=== PATIENT | female | born 1975 ===

== ENCOUNTER 2018-01-07 17:10 | Emergency (ER) | payer OTHER ==
[2018-01-07 17:45] VITALS: BP 108/65
--- NOTE | 2018-01-07 18:32 | UC ---
Respiratory Complaint HPI - HPI Summary HPI Summary: 42 year old female presents with 2 week history of occasionally productive cough for yellow sputum. Associated with nasal congestion, post-nasal drip, mild sore throat. States had subjective fever at onset of symptoms but none recently. Denies ear pain, dysphagia, chest pain, shortness of breath, wheezing , abdominal pain, nausea, or vomiting. 1 PPD smoker. - History of Current Complaint Chief Complaint: UCRespiratory Stated Complaint: COUGH Time Seen by Provider: 01/07/18 18:25 Hx Obtained From: Patient Hx Last Menstrual Period: 12/21/17 ?: No Onset/Duration: Gradual Onset, Lasting Weeks - 2 Pain Intensity: 0 Aggravating Factors: Deep Breaths, Recumbent Position Alleviating Factors: Nothing Associated Signs And Symptoms: Positive: URI, Nasal Congestion. Negative: Dyspnea, Fever, Chills, Pleuritic Chest Pain, Wheezing, Hemoptysis, Sinus Discomfort - Allergies/Home Medications Allergies/Adverse Reactions: Allergies Allergy/AdvReac Type Severity Reaction Status Date / Time seafood Allergy Anaphylatic Uncoded 01/07/18 17:42 Shock PMH/Surg Hx/FS Hx/Imm Hx Previously Healthy: Yes - Denies significant PMH - Surgical History Surgical History: Yes Surgery Procedure, Year, and Place: OVARIAN MASS REMOVAL. . TUBAL LIGATION - Family History Family History: Noncontributory - Social History Occupation: Employed Full-time Lives: With Family Alcohol Use: None Substance Use Type: None Smoking Status (MU): Heavy Every Day Tobacco Smoker Type: Cigarettes Amount Used/How Often: 1 ppd Review of Systems Constitutional: Negative Skin: Negative Eyes: Negative ENT: Sore Throat, Nasal Discharge, Sinus Congestion Respiratory: Cough Cardiovascular: Negative Gastrointestinal: Negative Is Patient Immunocompromised?: No All Other Systems Reviewed And Are Negative: Yes Physical Exam Triage Information Reviewed: Yes Appearance: Well-Appearing, No Pain Distress, Well-Nourished Vital Signs: Initial Vital Signs Temp 98.9 F 01/07/18 17:40 Pulse 69 01/07/18 17:40 Resp 20 01/07/18 17:40 BP 108/65 01/07/18 17:40 Pulse Ox 99 01/07/18 17:40 Eyes: Positive: Conjunctiva Clear. Negative: Discharge ENT: Positive: Hearing grossly normal, Pharyngeal erythema - Mild with cobblestoning, Nasal congestion, TMs normal, Uvula midline. Negative: Nasal drainage, Tonsillar swelling, Tonsillar exudate, Trismus, Sinus tenderness Neck: Positive: Supple, Nontender, No Lymphadenopathy Respiratory: Positive: Lungs clear, Normal breath sounds, No respiratory distress, Other: - Harsh, non-productive cough Cardiovascular: Positive: RRR, No Murmur Neurological: Positive: Alert Skin Exam: Normal UC Diagnostic Evaluation - Laboratory O2 Sat by Pulse Oximetry: 99 Respiratory Course/Dx - Course Course Of Treatment: 42 year old female with 2 week history of occasionally productive cough for 2 weeks associated with URI symptoms. Afebrile. Exam reveals nasal congestion, mild pharyngeal erythema without tonsillar edema or exudate, and a harsh, non-productive cough. Considering the duration of her symptoms and her smoking history will treat her for acute bronchitis with a course of azithromycin. She was provided with prescription for Tessalon Perles to use PRN cough. She is to follow up with PCP in 7 days if symptoms persist. Warning symptoms reviewed with patient. Verbalizes understanding and agrees with POC. - Differential Dx/Diagnosis Provider Diagnoses: acute bronchitis Discharge - Sign-Out/Discharge Documenting (check all that apply): Patient Departure All imaging exams completed and their final reports reviewed: No Studies - Discharge Plan Condition: Stable Disposition: HOME Prescriptions: Azithromyxin JUNIOR (NF) [Z-Junior (Zithromax) 250 mg tabs #6] 2 tab PO .TODAY, THEN 1 DAILY #6 tab Benzonatate CAP* [Tessalon 100 MG CAP*] 100 mg PO TID PRN #30 cap PRN Reason: Cough Patient Education Materials: How to Stop Smoking (ED), Acute Bronchitis (ED) Referrals: Maggie Orta MD [Primary Care Provider] - Additional Instructions: Your symptoms are consistent with an acute bronchitis. Many times these are caused by a viral infection however considering the duration of your symptoms we will treat you with an antibiotic for a secondary bacterial infection. Take azithromycin 2 tabs today then 1 tab a day for next 4 days. May use Tessalon Perles 1 cap every 8 hours as needed for cough. Consider stopping smoking as this will worsen your symptoms. Follow up with your primary care provider in 7 days if symptoms persist. Seek immediate medical attention in the emergency room if you develop fever greater than 100.5 F, have chest pain, difficulty breathing, or any worsening of symptoms. - Billing Disposition and Condition Condition: STABLE Disposition: Home
== END 2018-01-07 18:43 | disposition home or self-care (01) ==
LOC: UCCORT 17:10
DX: J20.9 Acute bronchitis, unspecified (principal); F17.210 Nicotine dependence, cigarettes, uncomplicated; Z91.013 Allergy to seafood
CPT/HCPCS: 99212; G0463